=== PATIENT | male | born 1975 | race African-American/Black ===

== ENCOUNTER 2017-11-14 07:47 | Emergency (ER) | payer SELFPAY ==
--- NOTE | 2017-11-14 08:34 | EDM.PDOC ---
ED HPI GENERAL MEDICAL PROBLEM - General Chief Complaint: Genitourinary Problem Stated Complaint: STOMACH PAIN Time Seen by Provider: 11/14/17 08:15 - History of Present Illness INITIAL COMMENTS - FREE TEXT/NARRATIVE: HISTORY AND PHYSICAL: History of present illness: The patient is a 42-year-old male who denies any or GI history and has no systemic complaints but is here in the ED for pain in the end of his penis when he urinates. The patient says the symptoms have been ongoing for the last 2 weeks and his last sexual intercourse was 2 weeks ago. He denies STD risk spell and says he does not have a regular partner to nursing. He has no testicular pain or swelling no abdominal pain no hematuria. He has no flank pain no fevers no chills no nausea or vomiting and says that he drinks fluids. Patient has not noticed any skin lesions or changes to the area. Review of systems: As per history of present illness and below otherwise all systems reviewed and negative. Past medical history: As per history of present illness and as reviewed below otherwise noncontributory. Surgical history: As per history of present illness and as reviewed below otherwise noncontributory. Social history: No reported history of drug or alcohol abuse. Family history: As per history of present illness and as reviewed below otherwise noncontributory. Physical exam: HEENT: Atraumatic, normocephalic, negative for conjunctival pallor or scleral icterus, mucous membranes moist, throat clear, neck supple, nontender, trachea midline. Lungs: Clear to auscultation, breath sounds equal bilaterally, chest nontender. Heart: S1S2, regular, negative for clicks, rubs, or JVD. Abdomen: Soft, nondistended, nontender. Negative for masses or hepatosplenomegaly. Negative for costovertebral tenderness. Pelvis: Stable nontender. Genitourinary: Testicles are descended bilaterally and has no evidence of any swelling or tenderness. There is no inguinal adenopathy. There are no penile lesions drainage or abnormalities appreciated and there is no tenderness on my exam Rectal: Deferred. Extremities: Atraumatic, negative for cords or calf pain. Neurovascular unremarkable. Neuro: Awake, alert, oriented. Cranial nerves II through XII unremarkable. Cerebellum unremarkable. Motor and sensory unremarkable throughout. Exam nonfocal. Diagnostics: UA urine culture urine for gonorrhea and chlamydia Therapeutics: Rocephin and Zithromax I did discuss with the patient his elevated blood pressure and as he has no headache chest pain abdominal pain or neurosensory changes I've advised him to follow-up in the clinic for further care and evaluation. He is comfortable with this. Impression: Urethritis Definitive disposition and diagnosis as appropriate pending reevaluation and review of above. Penis Pain Score (Numeric/FACES): 6 - Related Data Allergies Allergy/AdvReac Type Severity Reaction Status Date / Time No Known Allergies Allergy Verified 11/14/17 08:03 Home Meds: Home Meds . [No Known Home Meds] 11/14/17 [History] Past Medical History - Past Health History Medical/Surgical History: Denies Medical/Surgical History Social & Family History - Family History Family Medical History: Noncontributory - Tobacco Use Smoking Status *Q: Never Smoker - Recreational Drug Use Recreational Drug Use: No ED ROS GENERAL - Review of Systems Review Of Systems: ROS reveals no pertinent complaints other than HPI. ED EXAM, GENERAL - Physical Exam Exam: See Below (See dictation) Course - Vital Signs Last Recorded V/S: Last Vital Signs Temp 36.4 C 11/14/17 08:00 Pulse 77 11/14/17 08:00 Resp 18 11/14/17 08:00 BP 189/121 H 11/14/17 08:00 Pulse Ox 98 11/14/17 08:00 - Orders/Labs/Meds Orders: Active Orders 24 hr Category Date Time Status CHLAMYDIA AND GONORRHEA BY TMA Stat Lab 11/14/17 08:16 Received CULTURE URINE [RM] Stat Lab 11/14/17 08:16 Ordered UA W/MICROSCOPIC [URIN] Stat Lab 11/14/17 08:16 Ordered Labs: Laboratory Tests 11/14/17 Range/Units 08:16 Urine Color YELLOW Urine Appearance SLT CLOUDY Urine pH 7.5 (5.0-8.0) Ur Specific [place] 1.015 (1.001-1.035) Urine Protein NEGATIVE (NEGATIVE) mg/dL Urine Glucose (UA) NEGATIVE (NEGATIVE) mg/dL Urine Ketones NEGATIVE (NEGATIVE) mg/dL Urine Occult Blood NEGATIVE (NEGATIVE) Urine Nitrite NEGATIVE (NEGATIVE) Urine Bilirubin NEGATIVE (NEGATIVE) Urine Urobilinogen 0.2 (<2.0) EU/dL Ur Leukocyte Esterase NEGATIVE (NEGATIVE) Urine RBC 0-1 (0-2/HPF) Urine WBC 10-12 (0-5/HPF) Ur Epithelial Cells RARE (NONE-FEW) Urine Bacteria RARE (NEGATIVE) Meds: Medications Discontinued Medications Generic Name Dose Route Start Last Admin Trade Name Beryl PRN Reason Stop Dose Admin Azithromycin 1,000 mg 11/14/17 08:55 Zithromax PO 11/14/17 08:56 ONETIME ONE Ceftriaxone Sodium 250 mg/ 1 mls @ 1 mls/sec 11/14/17 08:55 Lidocaine HCl IM 11/14/17 08:56 ONETIME ONE Departure - Departure Time of Disposition: 09:03 Disposition: Home, Self-Care 01 Condition: Good Clinical Impression: Urethritis - Discharge Information Referrals: PCP,None [Primary Care Provider] - Forms: ED Department Discharge Additional Instructions: The following information is given to patients seen in the emergency department who are being discharged to home. This information is to outline your options for follow-up care. We provide all patients seen in our emergency department with a follow-up referral. The need for follow-up, as well as the timing and circumstances, are variable depending upon the specifics of your emergency department visit. If you don't have a primary care physician on staff, we will provide you with a referral. We always advise you to contact your personal physician following an emergency department visit to inform them of the circumstance of the visit and for follow-up with them and/or the need for any referrals to a consulting specialist. The emergency department will also refer you to a specialist when appropriate. This referral assures that you have the opportunity for followup care with a specialist. All of these measure are taken in an effort to provide you with optimal care, which includes your followup. Under all circumstances we always encourage you to contact your private physician who remains a resource for coordinating your care. When calling for followup care, please make the office aware that this follow-up is from your recent emergency room visit. If for any reason you are refused follow-up, please contact the [facility] emergency department at and ask to speak to the emergency department charge nurse. [facility] Specialty Care-Urology [address] [place] [id number] [facility] Primary care- Internal Medicine and Family [facility] [address] [place] [phone] These push fluids and avoid caffeinated products. Please taken by medics as directed and avoid sexual intercourse for the next 5 days. Please call and schedule a follow-up appointment with one of our providers using resources given to above and return to ER as needed and as discussed. Please discuss with one of our providers in the clinic your elevated blood pressure as this may need more evaluation. - My Orders Last 24 Hours: My Active Orders 11/14/17 08:16 CHLAMYDIA AND GONORRHEA BY TMA Stat CULTURE URINE [RM] Stat UA W/MICROSCOPIC [URIN] Stat - Assessment/Plan Last 24 Hours: My Active Orders 11/14/17 08:16 CHLAMYDIA AND GONORRHEA BY TMA Stat CULTURE URINE [RM] Stat UA W/MICROSCOPIC [URIN] Stat
[2017-11-14] MEDS ORDERED: Azithromycin 250 MG Tab PO ONE (08:55)
[2017-11-14] MEDS ORDERED: cefTRIAXone 250 MG in Lidocaine 1% 1 ML IM ONE (08:55)
== END 2017-11-14 09:30 | disposition home or self-care (01) ==
LOC: MW.ED 07:47
DX: N34.2 Other urethritis (principal)
CPT/HCPCS: 81001; 87086; 87491; 87591; 96372; 99283; A9270; J0696